=== PATIENT | male | born 1965 | race Hispanic/Latino ===

== ENCOUNTER 2024-05-19 07:27 | Day surgery (SDC) | payer OTHER ==
[2024-05-16 09:07] LABS: Absolute Eosinophils 0.2 K/uL (0-0.5); Absolute Monocytes 0.7 K/uL (0.1-1.3); Absolute Neutrophil 3.2 K/uL (1.8-8.0); Basophils % 0.6 % (0-1.3); Eosinophils % 2.5 % (0-4.4); Hematocrit 43.6 % (39.6-49.0); Lymphocytes % 32.8 % (15.3-44.8); MCH 31.5 pg (27.0-35.0); MCHC 34.3 g/dL (32.0-36.0); MCV 91.6 fL (80-100); MPV 8.9 fL (7.6-11.3); Monocytes % 11.7 % (3.3-12.3); Neutrophils % 52.4 % (41.7-73.7); Platelets 228 thou/uL (152-406); RBC Red Blood Cell Count 4.76 M/uL (4.33-5.43); Red Cell Distribution Width 13.8 % (12.1-15.2)
[2024-05-16 09:22] LABS: Anion Gap 8.6 mEq/L (5.0-15.0); Potassium 4.6 mEq/L (3.5-5.1)
--- NOTE | 2024-05-16 14:10 | EKG ---
Test Date: 2024-05-16 Test Time: 08:58:00 Venereal Disease Investigator: HANSA MEASUREMENT RESULTS: Intervals: Rate: 63 MS: 166 QRSD: 86 QT: 432 QTc: 442 [place]: P: 38 MS: 166 QRS: 51 T: 9 INTERPRETIVE STATEMENTS: Normal sinus rhythm Normal ECG No previous ECG available for comparison Electronically Signed On 05-16-24 14:09:15 CDT by Dajuan Mo
[2024-05-19] MEDS ORDERED: LIDOCAINE 1% MPF 5 ML VIAL ONE (07:54)
[2024-05-19] MEDS ORDERED: propofoL 200 MG/20 ML VIAL IV ONE (07:54)
[2024-05-19] MEDS ORDERED: EPINEPHRINE 1 MG/ML VIAL ONE (07:56)
[2024-05-19] MEDS: Ringers Lactate 1,000 ML IV ONE (08:48)
[2024-05-19 09:36] VITALS: BP 124/67; TEMP 97.5; O2SAT 99
== END 2024-05-19 09:25 | disposition home or self-care (01) ==
LOC: OR 07:27
PROVIDERS: ATTEND Surgery
PROC: 0DJD8ZZ Inspection of Lower Intestinal Tract, Via Natural or Artificial Opening Endoscopic (ICD-10-PCS; principal; 2024-05-19 08:30)
DX: Z12.11 Encounter for screening for malignant neoplasm of colon (principal); K64.8 Other hemorrhoids; K64.4 Residual hemorrhoidal skin tags; I10 Essential (primary) hypertension; E78.00 Pure hypercholesterolemia, unspecified
CPT/HCPCS: 45378; 93005; 85025; 80048; 36415; J2704; J2003; J0171; J7120

== ENCOUNTER 2024-05-25 15:13 | Emergency (ER) | payer OTHER ==
[2024-05-25] MEDS ORDERED: CEFAZOLIN SODIUM 1 GM/VIAL ONE (15:47)
[2024-05-25] MEDS ORDERED: NA CHLORIDE 0.9% 100 ML ONE (15:47)
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
[2024-05-25 17:09] VITALS: TEMP 98.4
[2024-05-25 17:11] VITALS: BP 147/96; O2SAT 99
== END 2024-05-25 16:49 | disposition home or self-care (01) ==
LOC: ER 15:13
DX: S41.111A Laceration without foreign body of right upper arm, initial encounter (principal); W45.8XXA Other foreign body or object entering through skin, initial encounter
CPT/HCPCS: 96365; 73206; 99284; Q9967; J0690